=== PATIENT | female | born 1990 | race African-American/Black ===

== ENCOUNTER 2017-07-02 07:57 | Emergency (ER) | payer MEDICAID ==
[~2017-07-02] VITALS: Ht 157.5 cm; Wt 68.5 kg
[~2017-07-02 07:57] MED LIST: METR1TAB76 PO; SULF1TAB23 PO; TERC0.4C2 VAGINAL
[2017-07-02 07:58] VITALS: BP 127/60; PULSE 83; RESP 18; TEMP 99.1; O2SAT 100
[2017-07-02] MEDS ORDERED: iron PO (08:03)
[2017-07-02] MEDS ORDERED: prenatal PO (08:03)
[2017-07-02] MEDS ORDERED: AMOX500T PO (08:24)
--- NOTE | 2017-07-02 08:24 | PD ---
HPI Chief Complaint: ENT Complaint Time Seen by Provider: 08:11 Travel History International Travel<30 days: No Contact w/Intl Traveler<30days: No Traveled to known affect area: No History of Present Illness HPI 27 years old female complains of sore throat coughing congestion chest wall pain. Patient states that the symptoms started this morning. Patient is 23 weeks . Patient denies abdominal pain vaginal discharge or bleeding. Patient denies dysuria or frequency. Patient states her fetus active. Patient denies any fever chills. Patient denies any vomiting or diarrhea. PFSH Past Medical History Medical History: Denies Significant Hx Diminished Hearing: No ?: LMP: 23 weeks : 1 Para: 0 Miscarriage: 0 : 1 Dilation and Curettage (D&C): Yes Past Surgical History Surgical History: No Previous Surgery Social History Alcohol Use: No Tobacco Use: No (just quit) Substance Use: No Allergies-Medications (Allergen,Severity, Reaction): Coded Allergies: No Known Allergies (Verified Adverse Reaction, Unknown, 07/02/17) Reported Meds & Prescriptions Reported Meds & Active Scripts Active Reported [] 1 Tab PO DAILY [iron] 1 Tab PO DAILY Review of Systems General / Constitutional: No: Fever Eyes: No: Visual changes HENT: Positive: Sore Throat, No: Headaches Cardiovascular: No: Chest Pain or Discomfort Respiratory: Positive: Cough, No: Shortness of Breath Gastrointestinal: No: Abdominal Pain Genitourinary: No: Dysuria Musculoskeletal: No: Pain Skin: No Rash Neurologic: No: Weakness Psychiatric: No: Depression Endocrine: No: Polydipsia Hematologic/Lymphatic: No: Easy Bruising Physical Exam Narrative GENERAL: Well-nourished, well-developed patient. SKIN: Focused skin assessment warm/dry. HEAD: Normocephalic. EYES: No scleral icterus. No injection or drainage. TM: Clear. Throat: Mild erythematous. No exudate or edema. NECK: Supple, trachea midline. No JVD or lymphadenopathy. CARDIOVASCULAR: Regular rate and rhythm without murmurs, gallops, or rubs. RESPIRATORY: Breath sounds equal bilaterally. No accessory muscle use. GASTROINTESTINAL: Abdomen soft, non-tender, nondistended. MUSCULOSKELETAL: No cyanosis, or edema. BACK: Nontender without obvious deformity. No CVA tenderness. Data Data Last Documented VS Vital Signs Date Time Temp Pulse Resp B/P (MAP) Pulse Ox O2 Delivery O2 Flow Rate FiO2 07/02/17 08:15 18 07/02/17 07:58 99.1 83 127/60 (82) 100 Room Air MDM Medical Decision Making Medical Screen Exam Complete: Yes Emergency Medical Condition: Yes Differential Diagnosis Differential diagnosis including viral syndrome, URI, pharyngitis, bronchitis, pneumonia Narrative Course 27 years old female with sore throat, coughing congestion chest wall pain. Patient states that the symptoms started this morning. Diagnosis Primary Impression: URI (upper respiratory infection) Qualified Codes: J06.9 - Acute upper respiratory infection, unspecified Patient Instructions: General Instructions Additional Instructions: Amoxicillin as directed. Tylenol for fever. Follow-up with personal physician. Return if worse. Med/Other Pt SpecificInfo: Prescription(s) given Scripts Amoxicillin (Amoxicillin) 500 Mg Tab 500 MG PO TID for Infection, #21 TAB 0 Refills Prov: Percy Black MD 07/02/17 Disposition: 01 DISCHARGE HOME Condition: Stable Percy Black MD Jul 02, 2017 08:24
[2017-07-08] MEDS ORDERED: IRON18TA PO (11:22)
[2017-07-14] MEDS ORDERED: PRENMIS9 PO (10:17)
[2017-07-14] MEDS ORDERED: TRICCAP PO (10:18)
== END 2017-07-02 09:14 | disposition home or self-care (01) ==
LOC: NEPC 07:57
DX: O26.892 Other specified pregnancy related conditions, second trimester (principal); J06.9 Acute upper respiratory infection, unspecified; Z3A.23 23 weeks gestation of pregnancy
CPT/HCPCS: 99283

== ENCOUNTER → 2017-07-26 | Outpatient (CLI) | payer OTHER, MEDICAID ==
[~2017-07-26] MED LIST changes: +IRON18TA PO; -METR1TAB76 PO; +PRENMIS9 PO; -SULF1TAB23 PO; -TERC0.4C2 VAGINAL; +TRICCAP PO; +prenatal PO
== END ==
LOC: HPND 10:02
PROVIDERS: ATTEND Obstetrics & Gynecology
DX: O35.8XX0 Maternal care for other (suspected) fetal abnormality and damage, not applicable or unspecified (principal); O35.0XX0 Maternal care for (suspected) central nervous system malformation in fetus, not applicable or unspecified
CPT/HCPCS: 76811; 76825; 76827; 93325

== ENCOUNTER → 2017-08-21 | Outpatient (CLI) | payer MEDICAID, OTHER | LOC: HPND 09:25 | PROVIDERS: ATTEND Obstetrics & Gynecology | DX: O35.0XX0 Maternal care for (suspected) central nervous system malformation in fetus, not applicable or unspecified (principal) | CPT/HCPCS: 76816 ==

== ENCOUNTER → 2017-09-11 | Outpatient (CLI) | payer MEDICAID | LOC: HPND 09:43 | PROVIDERS: ATTEND Obstetrics & Gynecology | DX: O35.0XX0 Maternal care for (suspected) central nervous system malformation in fetus, not applicable or unspecified (principal); O36.5930 Maternal care for other known or suspected poor fetal growth, third trimester, not applicable or unspecified | CPT/HCPCS: 76816; 76818; 76820; 76821 ==

== ENCOUNTER 2017-09-28 15:34 | Emergency (ER) | payer MEDICAID ==
--- NOTE | 2017-09-28 16:55 | PD ---
HPI Chief Complaint extended monitoring Date Seen: Sep 28, 2017 Time Seen: 16:30 Travel History International Travel<30 Days: No Contact w/Intl Traveler<30Days: No Known Affected Area: No History of Present Illness HPI Ms. Murphy is a 27-year-old at 35/6 weeks gestation that was sent over to the OB ED by [facility] for extended monitoring. It was stated that there is a noted deceleration on the FHT. Patient states that she was stressed and hungry which increased her heart rate and the baby's heart rate increase. She is unsure why she goes to [facility] twice a week. Allergies-Medications (Allergen,Severity, Reaction): Coded Allergies: No Known Allergies (Verified Adverse Reaction, Unknown, 09/04/17) Home Meds Active Scripts Ferrous Fum/Vit C/B12-If/Folic (Tricon Capsule) 110 Mg Iron-75 Mg-15 Mcg-0.5 Mg Capsule, 1 TAB PO DAILY for 30 Days, #30 CAPLET 2 Refills Prov:Rachana Young CNM [facility] 07/14/17 [id number]/Iron/Folic/Om3 (Bal-Care Dha Essential Pack) 27 Mg Iron-1 Mg- 374 Mg Cmbpkgdrcp, 1 CAPLET PO DAILY for 30 Days, #30 CAPLET 2 Refills Prov:Rachana Young CNM [facility] 07/14/17 Reported Medications Ferrous Sulfate (Iron) Unknown Strength Tab, 1 TAB PO DAILY for Nutritional Supplement 07/08/17 [] No Conflict Check, 1 TAB PO DAILY 07/02/17 Review of Systems General / Constitutional: No: Fever, Chills Eyes: No: Blurred Vision HENT: Headaches Cardiovascular: No: Chest Pain or Discomfort Respiratory: No: Short of Breath Gastrointestinal: No: Diarrhea, Abdominal Pain, Constipation Genitourinary: No: Dysuria Musculoskeletal: No: Weakness Skin: No Rash Neurologic: No: Dizziness Physical Exam Narrative GENERAL: Well-nourished, well-developed patient. SKIN: Warm and dry. HEAD: Normocephalic and atraumatic. EYES: No scleral icterus. No injection or drainage. ENT: No nasal drainage noted. Mucous membranes pink. Airway patent. NECK: Supple, trachea midline. No JVD. CARDIOVASCULAR: Regular rate and rhythm without murmurs, gallops, or rubs. RESPIRATORY: Breath sounds equal bilaterally. No accessory muscle use. BREASTS: Bilateral exam showed no masses , no retractions, no nipple discharge. ABDOMEN/GI: Abdomen soft, non-tender, bowel sounds present, no rebound, no guarding Gravid to 35 weeks size FHT's: Category: 1 Baseline: 140s Reactive: yes Variability: moderate Decels: none EXTREMITIES: No cyanosis or edema. BACK: Nontender without obvious deformity. No CVA tenderness. NEUROLOGICAL: Awake and alert. Motor and sensory grossly within normal limits. Five out of 5 muscle strength in all muscle groups. Normal speech. Data Data Vital Signs Reviewed: Yes MDM Plan 27yo at 35/6 presenting for extended monitoring FHT is reassuring, Category 1 -Advised pt about lowering her stress level -Advised pt about signs of labor and when to return to the ED Will discharge home Diagnosis Diagnosis: Primary Impression: 35 weeks gestation of Disposition: 01 DISCHARGE HOME Condition: Stable Elvi Kaufman MD R1 Sep 28, 2017 16:55
== END 2017-09-28 17:03 | disposition home or self-care (01) ==
LOC: HOBED 15:34
DX: O26.893 Other specified pregnancy related conditions, third trimester (principal); F43.9 Reaction to severe stress, unspecified; Z3A.35 35 weeks gestation of pregnancy
CPT/HCPCS: 59025